=== PATIENT | female | born 1975 | race Caucasian/White ===

== ENCOUNTER 2024-08-06 17:42 | Emergency (ER) | payer SELFPAY ==
[~2024-08-06] VITALS: Ht 160 cm; Wt 59.0 kg
[2024-08-06 17:44] VITALS: TEMP 98.4
[2024-08-06 18:40] LABS: BASOPHILS # (AUTO) 0.1 (0.0-0.1); BASOPHILS % 0.6 % (0.0-1.0); EOSINOPHILS # (AUTO) 0.1 (0.0-0.4); EOSINOPHILS % 0.6 % (0.0-6.0); HEMATOCRIT 43.1 % (34.2-44.1); HEMOGLOBIN 14.6 g/dL (12.0-16.0); LYMPHOCYTES # (AUTO) 1.8 (1.0-3.2); LYMPHOCYTES % 19.4 % (18.0-39.1); MEAN CORPUSCULAR HEMOGLOBIN 33.9 pg (28-32); MEAN CORPUSCULAR HGB CONC 33.9 g/dL (31-35); MONOCYTES # (AUTO) 0.9 (0.2-0.8); MONOCYTES % 9.4 % (4.4-11.3); NEUTROPHILS # (AUTO) 6.5 (2.1-6.9); NEUTROPHILS % 69.6 % (38.7-80.0); PLATELET COUNT 180 x10e3/uL (140-360); RED BLOOD COUNT 4.31 x10e6/uL (3.6-5.1); RED CELL DISTRIBUTION WIDTH 11.3 % (11.7-14.4); WHITE BLOOD COUNT 9.36 x10e3/uL (4.8-10.8)
[2024-08-06 18:44] LABS: AMPHETAMINES SCREEN,URINE NEGATIVE (NEGATIVE); BENZODIAZEPINES SCREEN,URINE NEGATIVE (NEGATIVE); BILIRUBIN,URINE SMALL (NEGATIVE); CANNABINOIDS SCREEN,URINE NEGATIVE (NEGATIVE); CLARITY,URINE SL CLOUDY (CLEAR); COLOR,URINE YELLOW (YELLOW); GLUCOSE, URINE NEGATIVE (NEGATIVE); KETONES,URINE 1+ (NEGATIVE); LEUKOCYTE ESTERASE ,URINE LARGE (NEGATIVE); METHADONE SCREEN, URINE NEGATIVE (NEGATIVE); NITRITE,URINE NEGATIVE (NEGATIVE); OPIATES SCREEN,URINE NEGATIVE (NEGATIVE); PH,URINE 6.5 (5 - 7); PHENCYCLIDINE SCREEN,URINE NEGATIVE (NEGATIVE); PROTEIN,URINE DIPSTICK TRACE (NEGATIVE); URINE UROBILINOGEN 4 mg/dL (0.2 - 1)
[2024-08-06 18:56] LABS: ALBUMIN 4.3 g/dL (3.5-5.0); ALBUMIN/GLOBULIN RATIO 1.2 (0.8-2.0); ANION GAP 20.9 mmol/L (8-16); BILIRUBIN,TOTAL 0.9 mg/dL (0.2-1.2); CALCIUM 10.8 mg/dL (8.4-10.2); CREATININE, SERUM 0.74 mg/dL (0.57-1.11); TOTAL PROTEIN 7.8 g/dL (6.5-8.1)
[2024-08-06 18:57] LABS: AMORPHOUS SEDIMENT,URINE MODERATE (FEW); BACTERIA,URINE FEW /HPF; TRANSITIONAL EPI CELLS,URINE MODERATE; TRICHOMONAS,URINE RARE
[2024-08-06 19:02] LABS: TROPONIN I 0.005 ng/mL (0-0.300)
[2024-08-06 19:03] LABS: POTASSIUM 2.9 mmol/L (3.5-5.1)
[2024-08-06] MEDS: SODIUM CHLORIDE 0.9% 1000ML 1,000 ML IV ONE (19:35)
[2024-08-06] MEDS: ONDANSETRON HCL INJ 2MG/ML 2ML 2 MG/ML VIAL IV STA (19:35)
[2024-08-06] MEDS: POTASSIUM CHLORIDE 20 MEQ TAB CR PO ONE (19:40)
[2024-08-06] MEDS ORDERED: IOPAMIDOL 370 MG/ML 100 ML INFUS..BTL INJ ONE (20:00)
[2024-08-06 21:38] VITALS: PULSE 97; RESP 20
[2024-08-06] MEDS ORDERED: PANTOPRAZOLE SO40 MG PO (22:17)
[2024-08-06] MEDS ORDERED: ONDANSETRON ODT4 MG SL (22:17)
[2024-08-06 22:31] VITALS: BP 120/101; PULSE 99; RESP 16; O2SAT 100
== END 2024-08-06 22:30 | disposition home or self-care (01) ==
LOC: ER 17:59
DX: R11.2 Nausea with vomiting, unspecified (principal); R10.11 Right upper quadrant pain; R07.89 Other chest pain; E87.6 Hypokalemia; K76.0 Fatty (change of) liver, not elsewhere classified
CPT/HCPCS: 36415; 71046; 74177; 76705; 80053; 80307; 81001; 82550; 83690; 84484; 84702; 85025; 85379; 93005; 99284; J2405; J2470; J7030; Q9967